=== PATIENT | male | born 1970 | race Caucasian/White ===

== ENCOUNTER → 2017-01-12 | Emergency (ER) | payer OTHER ==
[~2017-01-12] VITALS: Ht 188 cm; Wt 113.4 kg
[~2017-01-12] MED LIST: ALEVE220 M1 PO; AUGMENTIN 875-1 EACH PO; BUSPIRONE HCL10 MG; DIPHENHYDRAMINE25 MG PO; FENOGLIDE40 MG; IBUPROFEN400 MG PO; MULTI VITAMIN1 EACH PO; NORCO 5-325 TA1 EACH PO; PRILOSEC20 MG PO; PROMETHAZINE-COD5 ML PO; PROTONIX40 MG PO; SUCRALFATE1 GM PO
--- NOTE | 2017-01-12 19:29 | EKG ---
[facility] [address] [place], [place] [address] Signed Normal sinus rhythm Incomplete right bundle branch block Nonspecific T wave abnormality Abnormal ECG No previous ECGs available Confirmed by GLADYS TRAN MD ([id number]) on 01/12/2017 7:29:30 PM Electronically Signed By: GLADYS TRAN MD 01/12/17 1929 PATIENT NAME: ALESIAYESSENIA Electrocardiogram DATE OF : 70 PHYSICIAN: GLADYS TRAN MD REPORT #: [id number] REPORT IS CONFIDENTIAL AND NOT TO BE RELEASED WITHOUT AUTHORIZATION
== END ==
LOC: ED 01:55
DX: R07.89 Other chest pain (principal); Z88.6 Allergy status to analgesic agent; Z87.11 Personal history of peptic ulcer disease
CPT/HCPCS: 71010; 80053; 84484; 85025; 93005; 93010; 99284